=== PATIENT | male | born 1950 | race Two or more races ===

== ENCOUNTER 2022-03-24 08:27 | Emergency (ER) | payer OTHER ==
[~2022-03-24] VITALS: Ht 167.6 cm; Wt 59.0 kg
[2022-03-24] MEDS ORDERED: ABATINEX680 MG PO (08:50)
[2022-03-24] MEDS ORDERED: NORVASC10 MG PO (08:51)
[2022-03-24] MEDS ORDERED: TOPROL XL50 M1 PO (08:51)
[2022-03-24] MEDS ORDERED: LOPERAMIDE2 MG PO (08:51)
== END 2022-03-24 10:02 | disposition left against medical advice (07) ==
LOC: ER 08:27
DX: R42 Dizziness and giddiness (principal); Z91.011 Allergy to milk products; Z91.012 Allergy to eggs; H61.23 Impacted cerumen, bilateral